=== PATIENT | female | born 1970 | race Caucasian/White ===

== ENCOUNTER 2016-06-25 13:53 | Emergency (ER) | payer OTHER ==
[2016-06-25 14:03] VITALS: BP 122/78; TEMP 97.9
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
[2016-06-25] MEDS ORDERED: ONDANSETRON DISINTEGRATING 4 MG TAB ONE (14:30)
[2016-06-25] MEDS ORDERED: ONDANSETRON DISINTEGRATING 4 MG TAB PO ONE (14:33)
[2016-06-25] MEDS ORDERED: ACETAMINOPHEN 500 MG TAB PO ONE (14:33)
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
[2016-06-25 15:25] VITALS: PULSE 73; RESP 18; O2SAT 98
== END 2016-06-25 15:25 | disposition home or self-care (01) ==
LOC: EDUNIT#
DX: S09.90XA Unspecified injury of head, initial encounter (principal); S16.1XXA Strain of muscle, fascia and tendon at neck level, initial encounter; V49.49XA Driver injured in collision with other motor vehicles in traffic accident, initial encounter; Y92.410 Unspecified street and highway as the place of occurrence of the external cause; Y93.89 Activity, other specified

== ENCOUNTER → 2017-06-20 | Outpatient (CLI) | payer OTHER | LOC: BMCIMAGING 07:37 | PROVIDERS: ATTEND Family Medicine | DX: Z12.31 Encounter for screening mammogram for malignant neoplasm of breast (principal) ==

== ENCOUNTER → 2018-09-25 | Outpatient (CLI) | payer OTHER | LOC: FIMAGING 07:07 | PROVIDERS: ATTEND Family Medicine | DX: R10.32 Left lower quadrant pain (principal) ==